=== PATIENT | male | born 1940 | race Caucasian/White ===

== ENCOUNTER → 2016-12-09 | Outpatient (CLI) | payer MEDICARE, OTHER ==
--- NOTE | 2016-12-09 16:10 | CONS ---
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 HISTORY OF PRESENT ILLNESS/SLEEP-WAKE EVALUATION: Patient's usual sleep schedule is from 10 p.m. until 5:30 a.m.; on weekends from around 11 p.m. until 7:30 a.m. Usually he has no problem falling asleep. No TV in bedroom. Patient wakes up from sleep 3 times with nocturia. He does not complain of sleepiness during the day. Weir Sleepiness Scale is 7. Past medical history is positive for: 1. Diabetes. 2. Hypertension. 3. Acid reflux. 4. Hyperlipidemia. 5. Depression. PAST SURGICAL HISTORY: Total left knee replacement. MEDICATIONS: 1. Metformin. 2. Glipizide. 3. Hydrochlorothiazide. 4. Omeprazole. 5. ( ) 6. Simvastatin. 7. Sertraline. 8. Baby aspirin. SOCIAL HISTORY: Negative for smoking. Alcohol consumption occasional. REVIEW OF SYSTEMS: Basically awakenings from sleep with nocturia; otherwise negative. No fevers. No double vision. No recent chest pain. No shortness of breath. No abdominal pain. No bleeding episodes. No blood in urine. No seizure episodes. FAMILY HISTORY: Hypertension, hyperlipidemia, arthritis, snoring, cancer, diabetes, mental illness. PHYSICAL EXAMINATION: GENERAL: A pleasant 76-year-old gentleman without distress. VITAL SIGNS: BP 141/79, HR 80, RR 16. Height 5 feet 9 inches. Weight 257. BMI 38.0. Neck 17-1/2 inches in circumference. Temperature 97.1. Oxygen saturation at room air 95%. HEENT: PERRLA, EOMI. Evaluation of oropharynx showed tongue protrudes midline; extremely low position of soft palate; some restriction of nasal breathing. NECK: Supple. No JVD. Thyroid is not palpable. LUNGS: Clear to percussion and to auscultation. Good air exchange. No wheezing or rhonchi. HEART: S1, S2 regular. No murmurs, gallops or rubs. ABDOMEN: Obese. EXTREMITIES: No clubbing or cyanosis. HEMODIALYSIS RN: Awake, alert, and oriented x3. Cranial nerves 2 to 7 intact. There is no fasciculation or atrophy noted. No focal deficits observed. IMPRESSION: 1. Multiple awakenings from sleep with nocturia, extremely low position of soft palate, wide neck; possible obstructive sleep apnea/hypopnea syndrome. 2. Diabetes. 3. Hypertension. 4. Acid reflux. 5. Hyperlipidemia. 6. History of depression. 7. Status post total left knee replacement. 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 PLAN: 1. Polysomnography for evaluation of patient's breathing during sleep. 2. CPAP/BiPAP titration if sleep study confirms obstructive sleep apnea-hypopnea syndrome. 3. Preferable position during sleep on the side. 4. No driving if patient feels any sleepiness. Patient is aware of civil and criminal liability for unsafe driving. 5. I will see patient for follow-up visit to explain results of the testing and following plan. Sincerely, Pillo Go MD, PhD, FAASM. Diplomat of [place] [employer], Sleep Medicine Board by [place] [employer] [place] [employer] Wastewater Supervisor of [facility] [place]
== END | disposition home or self-care (01) ==
LOC: SLEEP 13:32
PROVIDERS: ATTEND Internal Medicine
DX: G47.33 Obstructive sleep apnea (adult) (pediatric) (principal); E11.9 Type 2 diabetes mellitus without complications; I10 Essential (primary) hypertension; K21.9 Gastro-esophageal reflux disease without esophagitis; R78.5 Finding of other psychotropic drug in blood; F32.9 Major depressive disorder, single episode, unspecified; Z96.652 Presence of left artificial knee joint; Z79.899 Other long term (current) drug therapy; Z68.38 Body mass index [BMI] 38.0-38.9, adult
CPT/HCPCS: 99211

== ENCOUNTER → 2017-02-09 | Outpatient (CLI) | payer OTHER ==
--- NOTE | 2017-02-09 22:31 | PN ---
DATE OF SERVICE: 02/09/2017 A 76-year-old gentleman who has been followed in the sleep center to discuss results of diagnostic sleep study. I discussed results of diagnostic sleep study with patient in detail. Study done on 11/08/2017. Sleep efficiency was borderline, 76.3%. Respiratory channel showed 2 obstructive apneas, 3 central apneas and 133 hypopneas with total apnea-hypopnea index 25.7 with oxygen desaturation to 83.2%. Oxygen level was below normal for 4.5 minutes. MEDICATIONS: 1. Metformin. 2. Glipizide. 3. Hydrochlorothiazide. 4. Omeprazole. 5. Simvastatin. 6. Sertraline. 7. Baby aspirin. Derby Sleepiness Scale is 3. PHYSICAL EXAMINATION: GENERAL: A pleasant patient without any distress. VITAL SIGNS: BP 135/76, HR 74, RR 16. Oxygen saturation at room air 93%. Temperature 96.4. Weight 273.6. HEENT: PERRLA, EOMI. Evaluation of oropharynx showed tongue protrudes midline, extremely low position of soft palate. Some restriction of nasal breathing. Neck: Supple. No JVD. Thyroid is not palpable. LUNGS: Clear to percussion and to auscultation. Good air exchange. No wheezing or rhonchi. HEART: S1, S2 regular. No murmurs, gallops, or rubs. ABDOMEN: Obese, soft and nontender. Bowel sounds are present. No organomegaly appreciated. EXTREMITIES: No clubbing or cyanosis. GAS AND OIL CHECKER: Awake, alert, and oriented x3. Cranial nerves 2 to 7 intact. There is no fasciculation or atrophy noted. No focal deficits observed. IMPRESSION: 1. Moderate obstructive sleep apnea/hypopnea syndrome. Apnea-hypopnea index 25.7 with oxygen desaturation to 83.2%. 2. Hypertension. 3. Acid reflux. 4. Hyperlipidemia. 5. Obesity. 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 PLAN: 1. CPAP titration for re-evaluation of effective CPAP pressure for correction of patient's respiratory abnormalities during sleep. 2. CPAP treatment for respiratory abnormalities during sleep. 3. Precautions related to driving. No driving if feeling any sleepiness. 4. Patient should be started on treatment with CPAP for correction of respiratory abnormalities as soon as possible. 5. Losing weight. 6. Sleep hygiene with regular time in bed for at least 8 hours. Thank you very much for allowing me to participate in the management of your patient. Sincerely, Pillo Go MD, PhD, FAASM. Diplomat of [place] [employer], Sleep Medicine Board by [place] [employer] [employer] Elevator Erector of [facility] [place]
== END | disposition home or self-care (01) ==
LOC: SLEEP 14:55
PROVIDERS: ATTEND Internal Medicine
DX: G47.33 Obstructive sleep apnea (adult) (pediatric) (principal); E78.5 Hyperlipidemia, unspecified; E66.9 Obesity, unspecified; K21.9 Gastro-esophageal reflux disease without esophagitis; Z79.84 Long term (current) use of oral hypoglycemic drugs; Z79.82 Long term (current) use of aspirin; Z79.899 Other long term (current) drug therapy

== ENCOUNTER 2019-10-23 14:18 | Emergency (ER) | payer OTHER, MEDICARE ==
[2019-10-23 14:28] VITALS: BP 135/84; PULSE 81; RESP 16; TEMP 97.9
[2019-10-23] MEDS ORDERED: KETOROLAC 30 MG/ML 1 ML VIAL IVP STA (14:59)
[2019-10-23] MEDS ORDERED: SODIUM CHLORIDE 0.9% 500 ML 500 ML IV STA (14:59)
[2019-10-23 15:30] LABS: Basophils % (A) 0 %; Eosinophils # (A) 0.4 k/uL (0-0.7); Eosinophils % (A) 4 %; Lymphocytes # (A) 1.7 k/uL (1.0-4.8); Lymphocytes % (A) 17 %; MCH 30.4 pg (25.0-35.0); MCV 89.4 fL (80.0-100.0); Mean Platelet Volume 7.9; Monocytes # (A) 0.5 k/uL (0-1.0); Monocytes % (A) 5 %; Neutrophils # (A) 7.6 k/uL (1.3-7.7); Neutrophils % (A) 73 %; Platelet Count 219 k/uL (150-450); RBC 4.59 m/uL (4.30-5.90); RDW 12.6 % (11.5-15.5); WBC 10.4 k/uL (3.8-10.6)
--- NOTE | 2019-10-23 15:32 | ED ---
General Adult HPI - General Chief complaint: Urogenital Stated complaint: Confused, Side Pain Time Seen by Provider: 10/23/19 14:33 Source: patient Mode of arrival: ambulatory Limitations: no limitations - History of Present Illness Initial comments: Patient is a 79-year-old male presenting to emergency Department with complaints of left-sided flank pain that has been increasing over the past 3 days. Patient admits to falling onto his left side approximately 2 weeks ago after his dog tripped him. Patient states he had some left-sided rib pain for a few days but that has since decreased. Patient states this left lower flank pain is new and has been increasing. Patient has not tried taking any medication for this pain. Patient denies any nausea, vomiting, fever, chills, trouble with urination. Patient denies history of kidney stones. Patient has no other complaints at this time. Upon arrival to the ER, vital signs are stable. - Related Data Home Medications Medication Instructions Recorded Confirmed Omeprazole [PriLOSEC] 20 mg PO AC-BRKFST 11/24/15 05/11/18 Pravastatin Sodium [Pravachol] 80 mg PO HS 11/24/15 05/11/18 Sertraline HCl [Zoloft] 100 mg PO HS 11/24/15 05/11/18 glipiZIDE [Glucotrol] 10 mg PO BID 11/24/15 05/11/18 metFORMIN HCL [metFORMIN HCL ER] 1,000 mg PO BID 11/24/15 05/11/18 Aspirin [Adult Low Dose Aspirin EC] 81 mg PO DAILY 04/19/18 05/11/18 Hydrochlorothiazide 25 mg PO DAILY 04/19/18 05/11/18 Saxagliptin HCl [Onglyza] 5 mg PO DAILY 04/19/18 05/11/18 Vasel Tropical Cream 1 applicate TOPICAL DAILY PRN 05/11/18 05/11/18 Allergies Allergy/AdvReac Type Severity Reaction Status Date / Time No Known Allergies Allergy Verified 10/23/19 14:28 Review of Systems ROS Statement: Those systems with pertinent positive or pertinent negative responses have been documented in the HPI. ROS Other: All systems not noted in ROS Statement are negative. Past Medical History Past Medical History: Cancer, Diabetes Mellitus, GERD/Reflux, Hyperlipidemia, Hypertension, Prostate Disorder, Skin Disorder Additional Past Medical History / Comment(s): hx prostate cancer-tx with radiation, post radiation, skin cancer, dry skin, History of Any Multi-Drug Resistant Organisms: None Reported Past Surgical History: Joint Replacement Additional Past Surgical History / Comment(s): left knee replacement Past Anesthesia/Blood Transfusion Reactions: No Reported Reaction Past Psychological History: Depression Smoking Status: Never smoker - Past Family History Father Family Medical History: Cancer Additional Family Medical History / Comment(s): lung ca Mother Family Medical History: Cancer Additional Family Medical History / Comment(s): ovarian ca General Exam - General Exam Comments Initial Comments: GENERAL: Well-appearing, well-nourished and in no acute distress. HEAD: Atraumatic, normocephalic. EYES: Pupils equal round and reactive to light, extraocular movements intact, sclera anicteric, conjunctiva are normal. ENT: Nares patent, oropharynx clear without exudates. Moist mucous membranes. NECK: Normal range of motion, supple without lymphadenopathy or JVD. LUNGS: Breath sounds clear to auscultation bilaterally and equal. No wheezes rales or rhonchi. HEART: Regular rate and rhythm without murmurs, rubs or gallops. ABDOMEN: Soft, nontender, normoactive bowel sounds. No guarding, no rebound. No masses appreciated. Mild tenderness to palpation of the left lower side into the left flank area. : Deferred EXTREMITIES: Normal range of motion, no pitting or edema. No clubbing or cyanosis. NEUROLOGICAL: Cranial nerves II through XII grossly intact. Normal speech, normal gait. PSYCH: Patient is flirty with staff, mood is which is from joking to upset, seems slightly confused at times but then laughs it off. SKIN: Warm, Dry, normal turgor, no rashes or lesions noted. Limitations: no limitations Course Vital Signs 10/23/19 10/23/19 14:26 18:41 Temperature 97.9 F 97.9 F Pulse Rate 81 81 Respiratory 16 16 Rate Blood Pressure 135/84 135/84 O2 Sat by Pulse 94 L 94 L Oximetry Medical Decision Making - Medical Decision Making Patient is a 79-year-old male presenting with left flank pain 3 days. Lab work shows no acute abnormalities. UA is normal. Chest x-ray is normal. CT of the abdomen shows a nondisplaced fracture of the left eighth rib. Borderline hepatomegaly, a 2 cm pancreatic lesion with recommended follow-up, numerous prominent left-sided mesenteric lymph nodes measuring up to 9 mm, recommended CT follow-up. I discussed with patient that his symptoms are most likely related to his mild rib fracture in the left side as well as a few inflamed left-sided lymph nodes. Patient seems mildly confused and is joking/flirting. I called patient's daughter who explained this is his baseline. Patient is stable for discharge at this time. Return parameters were discussed with the patient and he verbalized understanding. Patient needs to follow up with PCP in 1-3 days. Case discussed in detail with Dr. Martinez who agrees with this plan of care. - Lab Data Result diagrams: 10/23/19 15:00 10/23/19 15:00 Lab Results 10/23/19 10/23/19 10/23/19 Range/Units 15:00 15:00 15:00 WBC 10.4 (3.8-10.6) k/uL RBC 4.59 (4.30-5.90) m/uL Hgb 14.0 (13.0-17.5) gm/dL Hct 41.0 (39.0-53.0) % MCV 89.4 (80.0-100.0) fL MCH 30.4 (25.0-35.0) pg MCHC 34.0 (31.0-37.0) g/dL RDW 12.6 (11.5-15.5) % Plt Count 219 (150-450) k/uL Neutrophils % 73 % Lymphocytes % 17 % Monocytes % 5 % Eosinophils % 4 % Basophils % 0 % Neutrophils # 7.6 (1.3-7.7) k/uL Lymphocytes # 1.7 (1.0-4.8) k/uL Monocytes # 0.5 (0-1.0) k/uL Eosinophils # 0.4 (0-0.7) k/uL Basophils # 0.0 (0-0.2) k/uL Sodium 134 L (137-145) mmol/L Potassium 4.1 (3.5-5.1) mmol/L Chloride 97 L (98-107) mmol/L Carbon Dioxide 28 (22-30) mmol/L Anion Gap 9 mmol/L BUN 14 (9-20) mg/dL Creatinine 0.85 (0.66-1.25) mg/dL Est GFR (CKD-EPI)AfAm >90 (>60 ml/min/1.73 sqM) Est GFR (CKD-EPI)NonAf 84 (>60 ml/min/1.73 sqM) Glucose 195 H (74-99) mg/dL Plasma Lactic Acid Fidel 1.3 (0.7-2.0) mmol/L Calcium 9.5 (8.4-10.2) mg/dL Total Bilirubin 0.5 (0.2-1.3) mg/dL AST 19 (17-59) U/L ALT 26 (21-72) U/L Alkaline Phosphatase 67 (38-126) U/L Total Protein 7.5 (6.3-8.2) g/dL Albumin 4.3 (3.5-5.0) g/dL Urine Color Urine Appearance (Clear) Urine pH (5.0-8.0) Ur Specific Whiting (1.001-1.035) Urine Protein (Negative) Urine Glucose (UA) (Negative) Urine Ketones (Negative) Urine Blood (Negative) Urine Nitrite (Negative) Urine Bilirubin (Negative) Urine Urobilinogen (<2.0) mg/dL Ur Leukocyte Esterase (Negative) 10/23/19 Range/Units 16:50 WBC (3.8-10.6) k/uL RBC (4.30-5.90) m/uL Hgb (13.0-17.5) gm/dL Hct (39.0-53.0) % MCV (80.0-100.0) fL MCH (25.0-35.0) pg MCHC (31.0-37.0) g/dL RDW (11.5-15.5) % Plt Count (150-450) k/uL Neutrophils % % Lymphocytes % % Monocytes % % Eosinophils % % Basophils % % Neutrophils # (1.3-7.7) k/uL Lymphocytes # (1.0-4.8) k/uL Monocytes # (0-1.0) k/uL Eosinophils # (0-0.7) k/uL Basophils # (0-0.2) k/uL Sodium (137-145) mmol/L Potassium (3.5-5.1) mmol/L Chloride (98-107) mmol/L Carbon Dioxide (22-30) mmol/L Anion Gap mmol/L BUN (9-20) mg/dL Creatinine (0.66-1.25) mg/dL Est GFR (CKD-EPI)AfAm (>60 ml/min/1.73 sqM) Est GFR (CKD-EPI)NonAf (>60 ml/min/1.73 sqM) Glucose (74-99) mg/dL Plasma Lactic Acid Fidel (0.7-2.0) mmol/L Calcium (8.4-10.2) mg/dL Total Bilirubin (0.2-1.3) mg/dL AST (17-59) U/L ALT (21-72) U/L Alkaline Phosphatase (38-126) U/L Total Protein (6.3-8.2) g/dL Albumin (3.5-5.0) g/dL Urine Color Yellow Urine Appearance Clear (Clear) Urine pH 6.0 (5.0-8.0) Ur Specific Whiting 1.011 (1.001-1.035) Urine Protein Negative (Negative) Urine Glucose (UA) Trace H (Negative) Urine Ketones Negative (Negative) Urine Blood Negative (Negative) Urine Nitrite Negative (Negative) Urine Bilirubin Negative (Negative) Urine Urobilinogen <2.0 (<2.0) mg/dL Ur Leukocyte Esterase Negative (Negative) Disposition Clinical Impression: Left sided abdominal pain, Left rib fracture Disposition: HOME SELF-CARE Condition: Stable Instructions (If sedation given, give patient instructions): Rib Fracture (ED) Additional Instructions: Please return to the Emergency Department if symptoms worsen or any other conc erns. Follow-up with your primary care doctor tomorrow. You have a left sided rib fracture as well as inflamed lymph nodes in your left abdomen. Is patient prescribed a controlled substance at d/c from ED?: No Referrals: [facility],Clinic [Primary Care Provider] - 1-2 days
[2019-10-23 15:41] LABS: ALT 26 U/L (21-72); AST 19 U/L (17-59); African American GFR (CKD) >90 (>60 ml/min/1.73 sqM); Albumin 4.3 g/dL (3.5-5.0); Alkaline Phosphatase 67 U/L (38-126); Anion Gap 9 mmol/L; Blood Urea Nitrogen 14 mg/dL (9-20); Calcium 9.5 mg/dL (8.4-10.2); Carbon Dioxide 28 mmol/L (22-30); Chloride 97 mmol/L (98-107); Glucose 195 mg/dL (74-99); Non-African American GFR(CKD) 84 (>60 ml/min/1.73 sqM); Potassium 4.1 mmol/L (3.5-5.1); Sodium 134 mmol/L (137-145); Total Bilirubin 0.5 mg/dL (0.2-1.3); Total Protein 7.5 g/dL (6.3-8.2)
--- NOTE | 2019-10-23 16:13 | XR ---
EXAMINATION TYPE: PA chest and left rib series DATE OF EXAM: 10/23/2019 Comparison: 08/08/2014 TECHNIQUE: 5 views Clinical History: 79-year-old male pain, fall Findings: Patient is rotated toward the right and obliquely towards the right altering the normal cardiac and m ediastinal contours. Heart upper limits of normal in size. Mild aorta and pulmonary vasculature withi n normal limits. Focal density right midlung. Otherwise, no consolidation or pleural effusion. No displaced left rib fracture seen. Impression: 1. Focal density right midlung may represent summation artifact especially given slight patient rotat ion and oblique positioning. Short interval follow-up PA view of the chest recommended to reassess. I f the finding persists, contrast-enhanced CT can exclude underlying pulmonary nodule. 2. No displaced left rib fracture. Chronic appearing changes without acute cardiopulmonary process se en.
--- NOTE | 2019-10-23 16:30 | CT ---
EXAMINATION TYPE: CT abdomen pelvis wo con DATE OF EXAM: 10/23/2019 COMPARISON: None HISTORY: 79-year-old male Left side abdominal pain CT DLP: 1354.4 mGycm. Automated exposure control for dose reduction was used. TECHNIQUE: Contiguous axial scanning of the abdomen and pelvis without IV contrast. Coronal and sagit huyen reconstructions performed. FINDINGS: Heart is normal in size without pericardial effusion. Dependent atelectasis in the lower lungs. Subtle nondisplaced fracture of the left anterolateral eighth rib. Liver borderline enlarged at 17.9 cm. Low-attenuation suggests underlying fatty infiltration. A couple dependent gallstones measuring up to 7 mm. There is no abnormal gallbladder distention. Adrenal glands, kidneys, are within normal limits. 2.0 x 1.4 cm cystic lesion of the pancreatic tail. Generalized pancreatic atrophy. Scattered prominent left-sided mesenteric lymph nodes measure up to 9 mm, refer to coronal image 48 a nd axial image 41 nor intraperitoneal lymphadenopathy. [id number] stool. Sigmoid diverticulosis. No pericolonic symmetry change. Prominent distention of the urinary bladder up to 16.5 cm. Prostate gland measures 4.1 cm wide. No ab normal fluid collection in the pelvis or pelvic lymphadenopathy seen. Bones: Moderate degenerative changes of the hips. Indeterminate 1 cm sclerotic focus right iliac bone , axial image 70. Hypertrophic facet arthropathy lower lumbar spine. No additional sclerotic lesion s een. IMPRESSION: 1. Nondisplaced fracture of the left anterolateral eighth rib. 2. Hepatic steatosis with borderline hepatomegaly (17.9 cm). 3. Cholelithiasis. 4. A 2.0 x 1.4 cm pancreatic tail cystic lesion. Contrast enhanced pancreas MRI with the addition of MRCP is recommended to further evaluate. 5. Prominent distention of the urinary bladder up to 16.5 cm. Please correlate to ensure that this r epresents voluntary retention. 6. Numerous prominent left-sided mesenteric lymph nodes measuring up to 9 mm. 3-6 month follow-up CT recommended to ensure stability/resolution. 7. Nonspecific sclerotic focus right iliac bone may represent an incidental bone island. Correlate w ith PSA values. 8. Sigmoid diverticulosis.
[2019-10-23 17:22] LABS: Appearance,Urine Clear (Clear); Bilirubin,Urine Negative (Negative); Blood,Urine Negative (Negative); Color,Urine Yellow; Glucose,Urine (UA) Trace (Negative); Ketones,Urine Negative (Negative); Leukocyte Esterase,Urine Negative (Negative); Nitrite,Urine Negative (Negative); Protein,Urine Negative (Negative); Specific Gravity,Urine 1.011 (1.001-1.035); Urobilinogen,Urine <2.0 mg/dL (<2.0)
== END 2019-10-23 18:41 | disposition home or self-care (01) ==
LOC: EC 14:18
DX: S22.32XA Fracture of one rib, left side, initial encounter for closed fracture (principal); R10.30 Lower abdominal pain, unspecified; R16.0 Hepatomegaly, not elsewhere classified; K86.89 Other specified diseases of pancreas; R59.0 Localized enlarged lymph nodes; E11.9 Type 2 diabetes mellitus without complications; K21.9 Gastro-esophageal reflux disease without esophagitis; E78.5 Hyperlipidemia, unspecified; I10 Essential (primary) hypertension; F32.9 Major depressive disorder, single episode, unspecified; Z79.82 Long term (current) use of aspirin; Z79.84 Long term (current) use of oral hypoglycemic drugs; Z79.899 Other long term (current) drug therapy; Z85.46 Personal history of malignant neoplasm of prostate; Z85.828 Personal history of other malignant neoplasm of skin; Z92.3 Personal history of irradiation; W01.0XXA Fall on same level from slipping, tripping and stumbling without subsequent striking against object, initial encounter
CPT/HCPCS: 36415; 74176; 80053; 81003; 83605; 85025; 96361; 96374; 99285

== ENCOUNTER → 2020-01-08 | Day surgery (SDC) | payer MEDICARE, OTHER ==
[2020-01-03 15:44] VITALS: BMI 35.9
[~2020-01-08] MED LIST: IV FLUID CONTINUATION 1,000 ML IV ONE; LACTATED RINGERS 1,000 ML IV ONE; LACTATED RINGERS 1,000 ML IV SCH; PROPOFOL 10 MG/ML 20 ML VIAL IV ONE
[2020-01-08 08:21] LABS: Glucose,Whole Blood 156 mg/dL (75-99)
[2020-01-08 08:23] VITALS: TEMP 98.7
--- NOTE | 2020-01-08 08:55 | P.PCN ---
Date of Procedure: 01/08/20 Description of Procedure: BRIEF HISTORY: Patient is a 79-year-old female presenting for screening for malignant neoplasm of the colon with outpatient colonoscopy. Remote history of colonoscopy 30 years ago and he believes polyps were removed at that time. No change in bowel habits, blood per rectum or abdominal pain. No family history of colon cancer. PROCEDURE PERFORMED: Colonoscopy with polypectomy. PREOPERATIVE DIAGNOSIS: Screening for malignant neoplasm of colon, last colonoscopy 30 years ago. ESTIMATED BLOOD LOSS: Minimal. IV sedation per Anesthesia. PROCEDURE: After informed consent was obtained, the patient, was brought into the endoscopy unit. IV sedation was administered by Anesthesia under continuous monitoring. Digital rectal examination was normal. Initially the Olympus CF-190 flexible video colonoscope was then inserted in the rectum, gradually advanced into the cecum without any difficulty. Careful examination was performed as the scope was gradually being withdrawn. Ileocecal valve and the appendiceal orifice were visualized and appeared normal. Prep was excellent. Mucosa of the cecum, ascending colon, transverse colon, descending colon, sigmoid colon, and rectum appeared normal. Sessile 4 mm hepatic flexure polyp removed with cold snare polypectomy. Diminutive sessile colon polyps measuring 2 mm in size removed from the transverse colon and descending colon. Multiple small and large diverticula in the left colon. Retroflexion was performed in the rectum and no lesions were seen, moderate internal hemorrhoids noted. The patient tolerated the procedure well. IMPRESSION: 2 diminutive polyps removed from the transverse colon and descending colon with cold forcep polypectomy. Cold snare polypectomy of a hepatic flexure polyp. Moderate left colonic diverticulosis. Moderate grayish internal hemorrhoids. RECOMMENDATIONS: Findings of this examination were discussed with the patient. Okay to resume diet. Okay to resume medications. Await pathology from polypectomies. Anticipate repeat colonoscopy in 5 years if patient has medically stable.
[2020-01-08 09:04] VITALS: RESP 16
[2020-01-08 09:16] VITALS: BP 137/63; PULSE 78
[2020-01-08 09:23] LABS: Glucose,Whole Blood 160 mg/dL (75-99)
== END ==
LOC: ORWHC2ENDO 07:38
PROVIDERS: ATTEND Internal Medicine
DX: Z12.11 Encounter for screening for malignant neoplasm of colon (principal); D12.3 Benign neoplasm of transverse colon; K57.30 Diverticulosis of large intestine without perforation or abscess without bleeding; K64.8 Other hemorrhoids; Z86.010 Personal history of colon polyps; I10 Essential (primary) hypertension; E78.5 Hyperlipidemia, unspecified; G47.33 Obstructive sleep apnea (adult) (pediatric); E11.9 Type 2 diabetes mellitus without complications; F32.9 Major depressive disorder, single episode, unspecified; K21.9 Gastro-esophageal reflux disease without esophagitis; Z79.4 Long term (current) use of insulin; Z79.899 Other long term (current) drug therapy; Z79.82 Long term (current) use of aspirin; Z96.652 Presence of left artificial knee joint
CPT/HCPCS: 88305; 45380; 45385; J2704